=== PATIENT | male | born 1960 | race Caucasian/White ===

== ENCOUNTER 2022-02-26 15:13 | Emergency (ER) | payer BC ==
[2022-02-26] MEDS ORDERED: Lidocaine 1% 10 ML MDV INJECT ONE (16:53)
== END 2022-02-26 18:49 | disposition home or self-care (01) ==
LOC: JD.ED 15:13
DX: S63.264A Dislocation of metacarpophalangeal joint of right ring finger, initial encounter (principal); I10 Essential (primary) hypertension; Z79.899 Other long term (current) drug therapy; Z86.16 Personal history of COVID-19; W18.39XA Other fall on same level, initial encounter
CPT/HCPCS: 26770; 73140-26-F8; 73140-F8; 99283-25

== ENCOUNTER 2025-01-29 09:30 | Day surgery (SDC) | payer BC ==
[~2025-01-29 09:30] MED LIST: Sodium Chloride 0.9% 10 ML Syringe FLUSH PRN; Sodium Chloride 0.9% 10 ML Syringe FLUSH SCH
[2025-01-29] MEDS: Lactated Ringers 1,000 ML IV SCH (09:50)
[2025-01-29] MEDS ORDERED: fentaNYL 250 MCG/5 ML SDV ONE (10:24)
[2025-01-29] MEDS ORDERED: propofoL 500 MG/50 ML 50 ML ONE ×3 (10:24→11:46)
[2025-01-29] MEDS ORDERED: Dexamethasone 4 MG/ML 5 ML MDV ONE (10:25)
[2025-01-29] MEDS ORDERED: dexmedeTOMIDine HCl 200 MCG/2 ML SDV ONE (10:25)
[2025-01-29] MEDS ORDERED: Ondansetron 4 MG/2 ML SDV ONE (10:25)
[2025-01-29] MEDS: EPINEPHrine 1 MG/ML SDV ONE (11:08)
[2025-01-29] MEDS ORDERED: ePHEDrine 50 MG/ML SDV ONE (11:12)
[2025-01-29] MEDS ORDERED: Lactated Ringers 1,000 ML ONE (11:18)
[2025-01-29] MEDS ORDERED: Ondansetron 4 MG/2 ML SDV IVPUSH PRN (11:28)
[2025-01-29] MEDS ORDERED: fentaNYL 100 MCG/2 ML SDV IVPUSH PRN (11:28)
[2025-01-29] MEDS ORDERED: Phenylephrine 1% 10 MG/ML SDV ONE (11:42)
[2025-01-29] MEDS ORDERED: Acetaminophen Soln 650 MG/20.3 ML UD Cup PO ONE (11:45)
[2025-01-29] MEDS: Ketorolac 30 MG/ML SDV IVPUSH PRN (13:45)
== END 2025-01-29 14:10 | disposition home or self-care (01) ==
LOC: JD.SDS 09:30
PROVIDERS: ATTEND Surgery
DX: K40.90 Unilateral inguinal hernia, without obstruction or gangrene, not specified as recurrent (principal); I10 Essential (primary) hypertension; K21.9 Gastro-esophageal reflux disease without esophagitis; E78.00 Pure hypercholesterolemia, unspecified; Z79.899 Other long term (current) drug therapy
CPT/HCPCS: 49505; C1781; J0171; J0665; J0690; J1100; J1885; J2003; J2371; J2405; J2704; J3010; J7120; 00830; J3490